=== PATIENT | female | born 1960 | race Caucasian/White ===

== ENCOUNTER 2025-01-11 12:02 | Emergency (ER) | payer OTHER ==
[2025-01-11 13:06] LABS: Urine Microscopic Reflex YN NO UMIC
[2025-01-11 13:37] LABS: Absolute Lymphocytes (CBC) 3.3 K/uL (0.7-4.9); Hematocrit 43.5 % (36.0-45.0); Hemoglobin 15.3 g/dL (12.0-15.0); MCH 29.1 pg (27.0-35.0); MCHC 35.1 g/dL (32.0-36.0); MCV 82.9 fL (80-100); MPV 7.8 fL (7.6-11.3); Nucleated RBC Absolute Count 0.0 (0-0); Nucleated Red Blood Cells % 0.2 % (0-0); RBC Red Blood Cell Count 5.25 M/uL (3.86-4.86); White Blood Count 8.60 thou/uL (4.3-10.9)
[2025-01-11 13:52] LABS: Influenza A Ag Negative; Influenza B Ag Negative; SARS-CoV-2 Antigen Rapid Res Negative (Negative)
[2025-01-11 13:52] LABS: NT PRO-BNP 28 pg/mL (<125)
[2025-01-11 13:54] LABS: Troponin High Sensitivity < 3.0 pg/mL (<58.9)
[2025-01-11 14:16] LABS: ALT/SGPT 39.0 U/L (13-56); AST/SGOT 23.0 U/L (15-37); Albumin 4.3 g/dL (3.4-5.0); Albumin/Globulin Ratio 1.3 (1.1-1.8); Alkaline Phosphatase 62.0 U/L (45-117); Anion Gap 11.9 mEq/L (5.0-15.0); BUN Blood Urea Nitrogen 10.0 mg/dL (7-18); Globulin 3.4 g/dL (2.3-3.5); Glucose Level 95.0 mg/dL (74-106); Lipase 61.0 U/L (13-75); Potassium 3.9 mEq/L (3.5-5.1)
[2025-01-11 14:31] LABS: PT Prothrombin Time 12.1 SECONDS (10-13.0); PTT, Activated Partial Thromb 34.8 SECONDS (27.2-37.4); Protime INR 1.07
--- NOTE | 2025-01-11 14:52 | RAD REPORT ---
EXAMINATION: Abdomen Pelvis W Contrast CLINICAL INDICATION: Female, 64 years old.ABD PAIN TECHNIQUE: CT abdomen and pelvis was performed, after the administration of IV contrast, as per [facility]. Axial, sagittal and coronal reconstructions were obtained. One or more of the following dose reduction techniques were used: Automated exposure control, adjustment of the mA and/o r kV according to patient size, and/or iterative reconstruction. Unless otherwise specified, incidental findings do not require dedicated imaging follow-up. [id number]. COMPARISON: No prior exams FINDINGS: LOWER CHEST: No acute process identified.No significant pericardial effusion. Moderate circumferentia l thickening of the distal esophagus which could reflect esophagitis. Endoscopy could better evaluate. UPPER GI: Status post gastric banding. LIVER: Hepatic steatosis, but otherwise unremarkable. GALLBLADDER/BILE DUCTS: Cholecystectomy. Moderate extrahepatic biliary ductal dilatation. This could be secondary to the post-cholecystectomy state. Recommend correlation with LFT's. If abnormal, consider MRCP for further evaluation. ? PANCREAS: No mass, ductal dilation, or jevon-pancreatic fluid. SPLEEN: Unremarkable. ADRENALS: No adrenal masses. KIDNEYS AND URETERS: No hydronephrosis.Low density and/or too small to characterize renal lesions whi ch are statistically benign.No renal calculi.No ureteral calculi. ABDOMINAL AORTA AND OTHER VESSELS: Normal caliber aorta and IVC. PERITONEUM: No abnormal free fluid. No free air. Small simple appearing cystic structures adjacent to the splenic hilum which are of doubtful clinical significance. LYMPH NODES: No pathologic lymphadenopathy. ABDOMINAL WALL: Unremarkable SMALL BOWEL/COLON: Small bowel has normal course and caliber. No colonic wall thickening or pericolon ic inflammatory changes.No appendicitis. Colorectal anastomosis. URINARY BLADDER: Underdistended but grossly unremarkable. REPRODUCTIVE ORGANS: No pathologic process. MUSCULOSKELETAL: No acute or suspicious osseous abnormality. ADDITIONAL FINDINGS: None. IMPRESSION: No acute findings within the abdomen or pelvis.
--- NOTE | 2025-01-11 15:09 | EDPHYS ---
Physician Documentation [facility] Name: Deanna Lawson Age: 64 yrs Sex: Female : 1960 Arrival Date: 01/11/2025 Time: 12:02 Bed 16 Private MD: ED Physician Raoul Ling HPI: 01/11 15:01 This 64 yrs old Female presents to ER via Ambulatory with complaints of Fever, rn Abdominal Pain. 15:01 Patient reports subjective fever, chills, back pain. Patient states recent diagnosis of rn UTI and completed Macrobid prescription that was based off of urine culture. Patient states does not feel terrible but the back pain has her concern for kidney infection. Has had multiple UTIs in the past. Has had resistant urinary tract infections as well. States Macrobid was given based off of culture so should have worked. Patient also reports congestion. No cough or shortness of breath.. Historical: - Allergies: 12:22 Sulfa (Sulfonamide Antibiotics); ss 12:22 "sensitivity to pain medication"; ss 12:22 "floxins"; ss - PMHx: 12:22 Diabetes mellitus; Hypertensive disorder; epilepsy; ss - PSHx: 12:22 hysterectomy; Breast Reduction; cervical fusion; Cholecystectomy; ss - Immunization history:: Adult Immunizations unknown. - Infectious Disease History:: Denies. - Social history:: Smoking status: Patient denies any tobacco usage or history of. - Family history:: not pertinent. - Hospitalizations: : No recent hospitalization is reported. ROS: 15:01 Constitutional: Positive for fever and chills Cardiovascular: Negative for chest pain, rn palpitations, and edema, Respiratory: Negative for shortness of breath, cough, wheezing, and pleuritic chest pain, Abdomen/GI: soft, non-tender Back: Negative for CVAT Exam: 13:29 ECG was reviewed by the Attending Physician. rn 15:01 Constitutional: This is a well developed, well nourished patient who is awake, alert, rn and in no acute distress. Cardiovascular: Regular rate and rhythm. No pulse deficits. Respiratory: No increased work of breathing, no retractions or nasal flaring. Abdomen/GI: Soft, non-tender Back: No spinal tenderness. No costovertebral tenderness. Vital Signs: 12:19 BP 129 / 82; Pulse 80; Resp 16; Temp 97.9; Pulse Ox 100% on R/A; Weight 73.94 kg; ss Height 5 ft. 9 in. ; Pain 7/10; 13:30 BP 130 / 83; Pulse 74; Resp 20; Pulse Ox 100% on R/A; db 14:00 BP 127 / 88; Pulse 79; Resp 18; Pulse Ox 100% ; db 15:14 BP 140 / 90; Pulse 77; Resp 18; Pulse Ox 100% on R/A; db 12:19 Body Mass Index 24.07 (73.94 kg, 175.26 cm) ss 12:19 Pain Scale: Adult ss MDM: 12:08 Medical Screening Exam initiated rn 15:01 Differential diagnosis: viral Infection, bacterial infection, URI, UTI. Data reviewed: rn vital signs, nurses notes, lab test result(s), radiologic studies, CT scan, and as a result, I will discharge patient. Consideration of Admission/Observation Escalation of care including admission/observation considered. Care significantly affected by the following chronic conditions: Diabetes, Hypertension. Counseling: I had a detailed discussion with the patient and/or guardian regarding the historical points, exam findings, and any diagnostic results supporting the discharge/admit diagnosis, lab results, radiology results, the need for outpatient follow up, to return to the emergency department if symptoms worsen or persist or if there are any questions or concerns that arise at home. Special discussion: I discussed with the patient/guardian in detail that at this point there is no indication for admission to the hospital. It is understood, however, that if the symptoms persist or worsen the patient needs to return immediately for re-evaluation. Based on the history and exam findings, there is no indication for further emergent testing or inpatient evaluation. I discussed with the patient/guardian the need to see the primary care provider for further evaluation of the symptoms. ED course: Labs and imaging unremarkable. Will discharge home with broad-spectrum antibiotic but discussed case with patient and could be viral infection or secondary infection.. 01/11 12:12 Order name: CBC with Diff; Complete Time: 14:49 rn 01/11 12:12 Order name: CMP; Complete Time: 14:49 rn 01/11 12:12 Order name: Lipase; Complete Time: 14:49 rn 01/11 12:12 Order name: UA Rfx Kingsley Cult if indicated; Complete Time: 13:14 rn 01/11 12:25 Order name: BNP; Complete Time: 14:49 rn 01/11 12:25 Order name: Blood Culture Adult (2) rn 01/11 12:25 Order name: Lactate w/ 2H reflex if indic.; Complete Time: 14:49 rn 01/11 12:25 Order name: Protime (+inr); Complete Time: 14:49 rn 01/11 12:25 Order name: Ptt, Activated; Complete Time: 14:49 rn 01/11 12:25 Order name: Troponin HS; Complete Time: 14:49 rn 01/11 12:43 Order name: COVID-19 Ag + Flu A+B Ag; Complete Time: 14:49 rn 01/11 12:43 Order name: Group A Streptococcus Rapid; Complete Time: 14:49 rn 01/11 13:55 Order name: Throat Culture EDCT 01/11 12:12 Order name: CT Abd/Pelvis - IV Contrast Only; Complete Time: 14:56 rn 01/11 12:12 Order name: IV Saline Lock; Complete Time: 14:16 rn 01/11 12:12 Order name: Labs collected and sent; Complete Time: 14:16 rn 01/11 12:25 Order name: Accucheck; Complete Time: 14:15 rn 01/11 12:25 Order name: Cardiac monitoring; Complete Time: 12:59 rn 01/11 12:25 Order name: EKG - Nurse/Tech; Complete Time: 12:59 rn 01/11 12:25 Order name: IV Saline Lock - Large Bore; Complete Time: 14:15 rn 01/11 12:25 Order name: O2 Per Protocol; Complete Time: 14:15 rn 01/11 12:25 Order name: O2 Sat Monitoring; Complete Time: 14:15 rn 01/11 12:25 Order name: Vital Signs; Complete Time: 14:15 rn EC:29 Rate is 67 beats/min. Rhythm is regular. QRS [place] is Normal. DE interval is normal. QRS rn interval is normal. QT interval is normal. No Q waves. T waves are Normal. No ST changes noted. Clinical impression: Normal ECG. Interpreted by me. Reviewed by me. Administered Medications: 15:14 Drug: LevOfloxacin PO 500 mg PO once Route: PO; db 15:25 Follow up: Response: No adverse reaction db Disposition Summary: 01/11/25 15:07 Discharge Ordered Notes: Location: Home rn Problem: new rn Symptoms: have improved rn Condition: Stable rn Diagnosis - Fever, unspecified rn Followup: rn - With: Private Physician - When: As needed - Reason: Recheck today's complaints, Re-evaluation by your physician Discharge Instructions: - Discharge Summary Sheet rn - Fever, Adult rn Forms: - Medication Reconciliation Form rn - Antibiotic harness rigger - Prescription Opioid Use rn - Patient Portal Instructions rn - Leadership Thank You Letter rn Prescriptions: - levofloxacin 500 mg Oral tablet - take 1 tablet ORAL route once daily for 7 days; 7 tablet; Refills: 0, Product rn Selection Permitted Signatures: Dispatcher [employer] EDMS Raoul Ling MD MD rn Blanchard, Shelby, RN RN ss Benton, Danielle RN RN db Corrections: (The following items were deleted from the chart) 12:13 12:13 CBC+H.LAB.BRZ ordered. EDMS EDMS 12: 12:13 COMPREHENSIVE METABOLIC PANEL+C.LAB.BRZ ordered. EDMS EDMS 12: 12:13 LIPASE+C.LAB.BRZ ordered. EDMS EDMS 12: 12:13 UA Rfx Kingsley Cult if indicated+U.LAB.BRZ ordered. EDMS EDMS 12: 12:13 Abdomen Pelvis W Con+CT.RAD.BRZ ordered. EDMS EDMS 12: 12:26 PROBNP+C.LAB.BRZ ordered. EDMS EDMS 12: 12:26 BLOOD CULTURE*+BA.LAB.BRZ ordered. EDMS EDMS 12: 12:26 LACTATE+C.LAB.BRZ ordered. EDMS EDMS 12: 12:26 PROTIME (+INR)+COAG.LAB.BRZ ordered. EDMS EDMS 12: 12:26 PTT, ACTIVATED+COAG.LAB.BRZ ordered. EDMS EDMS 12: 12:26 Troponin High Sensitivity+C.LAB.BRZ ordered. EDMS EDMS 12: 12:43 COVID-19 Ag + Flu A+B Ag+I.LAB.BRZ ordered. EDMS EDMS 12:43 12:43 Group A Streptococcus Rapid Sc+I.LAB.BRZ ordered. EDMS EDMS
--- NOTE | 2025-01-11 15:09 | ER ---
Nurse's Notes [facility] Name: Deanna Lawson Age: 64 yrs Sex: Female : 1960 Arrival Date: 01/11/2025 Time: 12:02 Bed 16 Private MD: Diagnosis: Fever, unspecified Presentation: 01/11 12:19 Chief complaint: Patient states: Diagnosed with UTI 3 weeks ago and completed course of ss Macrobid a week ago and is still having burning with urination, frequency. Abd discomfort with flank pain that began yesterday and fever that began last night TMAX 100.8. Coronavirus screen: Client denies travel out of the [place] in the last 14 days. Ebola Screen: Patient denies exposure to infectious person. Patient denies travel to an Ebola-affected area in the 21 days before illness onset. Initial Sepsis Screen: Does the patient meet any 2 criteria? No. Patient's initial sepsis screen is negative. Does the patient have a suspected source of infection? No. Patient's initial sepsis screen is negative. Risk Assessment: Do you want to hurt yourself or someone else? Patient reports no desire to harm self or others. Onset of symptoms is unknown. 12:19 Method Of Arrival: Ambulatory ss 12:19 Acuity: WILLIAM 3 ss Historical: - Allergies: 12:22 Sulfa (Sulfonamide Antibiotics); ss 12:22 "sensitivity to pain medication"; ss 12:22 "floxins"; ss - PMHx: 12:22 Diabetes mellitus; Hypertensive disorder; epilepsy; ss - PSHx: 12:22 hysterectomy; Breast Reduction; cervical fusion; Cholecystectomy; ss - Immunization history:: Adult Immunizations unknown. - Infectious Disease History:: Denies. - Social history:: Smoking status: Patient denies any tobacco usage or history of. - Family history:: not pertinent. - Hospitalizations: : No recent hospitalization is reported. Screenin:01 [facility] ED Fall Risk Assessment (Adult) History of falling in the last 3 months, db including since admission No falls in past 3 months (0 pts) Confusion or Disorientation No (0 pts) Intoxicated or Sedated No (0 pts) Impaired Gait No (0 pts) Mobility Assist Device Used No (0 pt) Altered Elimination No (0 pt) Score/Fall Risk Level 0 - 2 = Low Risk Oriented to surroundings, Maintained a safe environment. Abuse screen: Denies threats or abuse. Denies injuries from another. Nutritional screening: No deficits noted. Tuberculosis screening: No symptoms or risk factors identified. Assessment: 13:17 Reassessment: Patient appears in no apparent distress at this time. Patient and/or db family updated on plan of care and expected duration. Pain level reassessed. Patient is alert, oriented x 3, equal unlabored respirations, skin warm/dry/pink. General: Appears in no apparent distress. comfortable, Behavior is calm, cooperative. Pain: Complains of pain in abdomen. Neuro: Level of Consciousness is awake, alert, obeys commands, Oriented to person, place, time, situation. GI: Abdomen is non-distended, Bowel sounds present X 4 quads. Abd is soft. 15:25 Reassessment: Patient appears in no apparent distress at this time. Patient and/or db family updated on plan of care and expected duration. Pain level reassessed. Patient is alert, oriented x 3, equal unlabored respirations, skin warm/dry/pink. Vital Signs: 12:19 BP 129 / 82; Pulse 80; Resp 16; Temp 97.9; Pulse Ox 100% on R/A; Weight 73.94 kg; ss Height 5 ft. 9 in. ; Pain 7/10; 13:30 BP 130 / 83; Pulse 74; Resp 20; Pulse Ox 100% on R/A; db 14:00 BP 127 / 88; Pulse 79; Resp 18; Pulse Ox 100% ; db 15:14 BP 140 / 90; Pulse 77; Resp 18; Pulse Ox 100% on R/A; db 12:19 Body Mass Index 24.07 (73.94 kg, 175.26 cm) ss 12:19 Pain Scale: Adult ss ED Course: 12:05 Patient arrived in ED. ts1 12:08 Raoul Ling MD is Attending Physician. rn 12:22 Triage completed. ss 12:22 Arm band placed on right wrist. ss 13:00 First set of blood cultures drawn. db 13:04 Linh Galindo, RN is Primary Nurse. db 13:05 Urine collected: clean catch specimen, EKG done. db 13:17 Initial lab(s) drawn, by me, sent to lab. Second set of blood cultures drawn. Inserted db saline lock: 20 gauge in left antecubital area, using aseptic technique. Blood collected. Flushed with 10 mL NS. 14:01 Patient has correct armband on for positive identification. Bed in low position. Call db light in reach. Side rails up X 1. Client placed on continuous cardiac and pulse oximetry monitoring. NIBP monitoring applied. quality assurance monitor body on. Pulse ox on. NIBP on. Warm blanket given. Pillow given. 14:38 CT Abd/Pelvis - IV Contrast Only In Process Unspecified. EDMS 15:22 Provided Education on: DISCHARGE AND FOLLOWUP. db 15:22 No provider procedures requiring assistance completed. IV discontinued, intact, db bleeding controlled, No redness/swelling at site. Administered Medications: 15:14 Drug: LevOfloxacin PO 500 mg PO once Route: PO; db 15:25 Follow up: Response: No adverse reaction db Medication: 14:01 VIS not applicable for this client. db Outcome: 15:07 Discharge ordered by . rn 15:22 Discharged to home ambulatory, with family, db 15:22 Condition: stable 15:22 Discharge instructions given to patient, Instructed on discharge instructions, follow up and referral plans. Prescriptions given X 1, 15:25 Patient left the ED. db Signatures: Dispatcher [employer] EDMS Raoul Ling MD MD rn Blanchard, Shelby, RN RN ss Benton, Danielle, RN RN Nkechi Prather PAS PAS ts1
[2025-01-11] MEDS ORDERED: levETIRAcetam 500 MG TAB ONE (15:10)
[2025-01-11 19:28] VITALS: O2SAT 100
[2025-01-11 19:30] VITALS: TEMP 97.9
[2025-01-11 19:33] VITALS: BP 140/90
== END 2025-01-11 15:25 | disposition home or self-care (01) ==
LOC: ER 12:02
DX: R50.9 Fever, unspecified (principal); M54.9 Dorsalgia, unspecified; Z11.52 Encounter for screening for COVID-19
CPT/HCPCS: 93005; 87040 ×2; 87070; 85025; 36415; 85610; 83605; 85730; 81003; 84484; 83690; 80053; 83880; 74177; 99284; 87428; Q9967

== ENCOUNTER 2025-01-17 16:51 | Emergency (ER) | payer OTHER ==
[2025-01-17] MEDS ORDERED: NA CHLORIDE 0.9% 1,000 ML ONE (17:26)
--- NOTE | 2025-01-17 17:56 | RAD REPORT ---
EXAMINATION: Ankle Left 3 View CLINICAL INDICATION: Female, 64 years old. injury lateral malleolus and inferior;Pain COMPARISON: No prior exam. FINDINGS: No acute fracture. No malalignment/dislocation. Plantar and dorsal aspect calcaneal spurs. Other: n/a IMPRESSION: No acute osseous abnormality.
--- NOTE | 2025-01-17 18:15 | ER ---
Nurse's Notes [facility] Name: Deanna Lawson Age: 64 yrs Sex: Female : 1960 Arrival Date: 01/17/2025 Time: 16:51 Bed 7 Private MD: Diagnosis: Sprain of unspecified ligament of left ankle, initial encounter Presentation: 01/17 17:12 Chief complaint: Patient states: was started on Levaquin lasts week for a UTI, now she iw is having pain in left ankle, she stepped down on it yesterday and felt like something ripped, she is also having pain in her neck and shoulders. Coronavirus screen: At this time, the client does not indicate any symptoms associated with coronavirus-19. Ebola Screen: No symptoms or risks identified at this time. Initial Sepsis Screen: Does the patient meet any 2 criteria? No. Patient's initial sepsis screen is negative. Does the patient have a suspected source of infection? No. Patient's initial sepsis screen is negative. Risk Assessment: Do you want to hurt yourself or someone else? Patient reports no desire to harm self or others. Onset of symptoms was January 07, 2025. 17:12 Method Of Arrival: Ambulatory iw 17:12 Acuity: WILLIAM 3 iw Historical: - Allergies: 17:13 Sulfa (Sulfonamide Antibiotics); iw - PMHx: 17:13 diabetes mellitus; epilepsy; Hypertensive disorder; iw - Immunization history:: Adult Immunizations unknown. - Infectious Disease History:: Denies. - Family history:: not pertinent. - Hospitalizations: : No recent hospitalization is reported. - Social history:: Smoking status: Patient denies any tobacco usage or history of. Screenin:36 [facility] ED Fall Risk Assessment (Adult) History of falling in the last 3 months, ph including since admission No falls in past 3 months (0 pts) Confusion or Disorientation No (0 pts) Intoxicated or Sedated No (0 pts) Impaired Gait No (0 pts) Mobility Assist Device Used No (0 pt) Altered Elimination No (0 pt) Score/Fall Risk Level 0 - 2 = Low Risk Oriented to surroundings, Maintained a safe environment, Hourly rounding (assess needs \\T\\ fall precautionary measures) done. Abuse screen: Denies threats or abuse. Denies injuries from another. Nutritional screening: No deficits noted. Tuberculosis screening: No symptoms or risk factors identified. Assessment: 17:34 General: Appears in no apparent distress. comfortable, well groomed, Behavior is calm, ph cooperative, appropriate for age. Pain: Complains of pain in neck, L ankle, and "all over". Neuro: Level of Consciousness is awake, alert, obeys commands, Oriented to person, place, time, situation. Cardiovascular: Capillary refill < 3 seconds in bilateral fingers Patient's skin is warm and dry. Respiratory: Airway is patent Respiratory effort is even, unlabored. Derm: Skin is pink, warm \\T\\ dry. 18:26 Reassessment: D/C pending completion of IV fluids. ph Vital Signs: 17:12 BP 132 / 94; Pulse 80; Resp 16; Temp 98.1(O); Pulse Ox 100% on R/A; Pain 7/10; iw 17:37 BP 134 / 80; Pulse 73; Resp 18; Pulse Ox 98% on R/A; ph 18:59 BP 128 / 78; Pulse 71; Resp 18; Temp 97.6; Pulse Ox 98% on R/A; ph 17:12 Pain Scale: Adult iw ED Course: 16:55 Patient arrived in ED. cj3 16:57 Raoul Ling MD is Attending Physician. rn 17:13 Triage completed. iw 17:17 Arm band placed on. iw 17:22 Elaina Marie, RN is Primary Nurse. ph 17:36 Inserted saline lock: 22 gauge in right antecubital area, using aseptic technique. ph Flushed with 10 mL NS. 17:37 Patient has correct armband on for positive identification. Bed in low position. Call ph light in reach. Side rails up X 1. Pulse ox on. NIBP on. Door closed. Noise minimized. Warm blanket given. 17:49 XRAY Ankle LEFT 3 view In Process Unspecified. EDMS 18:29 No provider procedures requiring assistance completed. ph 19:00 IV discontinued, intact, bleeding controlled, No redness/swelling at site. Pressure ph dressing applied. Administered Medications: 17:34 Drug: NS 0.9% IV 1000 ml IV at 1000 ml once; to be given as a bolus over 60 minutes ph Route: IV; Rate: 1000 ml; Site: right antecubital; 19:00 Follow up: Response: No adverse reaction; IV Status: Completed infusion; IV Intake: ph 1000ml Medication: 17:36 VIS not applicable for this client. ph Intake: 19:00 IV: 1000ml; Total: 1000ml. ph Outcome: 18:14 Discharge ordered by . rn 19:00 Discharged to home ambulatory, ph 19:00 Condition: good 19:00 Discharge instructions given to patient, Instructed on discharge instructions, follow up and referral plans. Demonstrated understanding of instructions, follow-up care, 19:00 Patient left the ED. ph Signatures: Dispatcher [employer] Kyara Tubbs RN RN iw Raoul Ling MD MD rn Hall, Patricia, RN RN Giselle Llanos 3 Corrections: (The following items were deleted from the chart) 17:17 17:12 BP 132 / 94; Pulse 80bpm; Resp 16bpm; Pulse Ox 100% RA; iw iw
--- NOTE | 2025-01-17 18:15 | EDPHYS ---
Physician Documentation [facility] Name: Deanna Lawson Age: 64 yrs Sex: Female : 1960 Arrival Date: 01/17/2025 Time: 16:51 Bed 7 Private MD: ED Physician Raoul Ling HPI: 01/17 17:18 This 64 yrs old Female presents to ER via Ambulatory with complaints of Joint Pain, rn Doesn't Feel Right. 17:18 Patient reports here mainly for left ankle injury, had a misstep and reports pain to rn the left lateral ankle and just inferior to the ankle. Able to ambulate and was swollen yesterday with improvement of swelling today. Does not feel like it is broken but came for evaluation as she is going out of town and back to work and is worried about all of the walking and strain on it. Also reports seen here last week, prescribed Levaquin and similar to previous reaction to it she started to feel joint aches. No fever or chills. Overall feels symptoms improved taking Levaquin and only has 1 pill remaining. States felt like this the last time she took Levaquin as well. No new symptoms or worsening symptoms.. Historical: - Allergies: 17:13 Sulfa (Sulfonamide Antibiotics); iw - PMHx: 17:13 diabetes mellitus; epilepsy; Hypertensive disorder; iw - Immunization history:: Adult Immunizations unknown. - Infectious Disease History:: Denies. - Family history:: not pertinent. - Hospitalizations: : No recent hospitalization is reported. - Social history:: Smoking status: Patient denies any tobacco usage or history of. ROS: 17:18 Constitutional: Negative for fever, chills, and weight loss, Neck: Negative for injury, rn pain, and swelling, Cardiovascular: Negative for chest pain, palpitations, and edema, Respiratory: Negative for shortness of breath, cough, wheezing, and pleuritic chest pain, Abdomen/GI: Negative for abdominal pain, nausea, vomiting, diarrhea, and constipation, MS/Extremity: Positive for left ankle injury and pain Skin: Negative for injury, rash, and discoloration, Neuro: Negative for headache, weakness, numbness, tingling, and seizure, Exam: 17:18 Constitutional: This is a well developed, well nourished patient who is awake, alert, rn and in no acute distress. Cardiovascular: Regular rate and rhythm. No pulse deficits. Respiratory: Speaking full sentences, unlabored. MS/ Extremity: Pulses equal, no cyanosis. Neurovascular intact. Full, normal range of motion. Equal circumference. Mild tenderness just inferior to the left lateral malleolus without swelling or ecchymosis noted. No open wounds. Neuro: Awake and alert, GCS 15, normal gait Vital Signs: 17:12 BP 132 / 94; Pulse 80; Resp 16; Temp 98.1(O); Pulse Ox 100% on R/A; Pain 7/10; iw 17:37 BP 134 / 80; Pulse 73; Resp 18; Pulse Ox 98% on R/A; ph 18:59 BP 128 / 78; Pulse 71; Resp 18; Temp 97.6; Pulse Ox 98% on R/A; ph 17:12 Pain Scale: Adult iw MDM: 16:57 Medical Screening Exam initiated rn 18:06 Independent interpretation of the following test(s) in the Emergency Department X-Ray: rn My interpretation is X-ray images left ankle negative for acute fracture or dislocation per my interpretation. 18:13 Differential diagnosis: fracture, sprain, arthritis. Data reviewed: vital signs, nurses rn notes, radiologic studies, plain films, and as a result, I will discharge patient. Counseling: I had a detailed discussion with the patient and/or guardian regarding the historical points, exam findings, and any diagnostic results supporting the discharge/admit diagnosis, radiology results, the need for outpatient follow up, to return to the emergency department if symptoms worsen or persist or if there are any questions or concerns that arise at home. Response to treatment: the patient's symptoms have mildly improved after treatment, and as a result, I will discharge patient. Special discussion: I discussed with the patient/guardian in detail that at this point there is no indication for admission to the hospital. It is understood, however, that if the symptoms persist or worsen the patient needs to return immediately for re-evaluation. ED course: Will hold Levaquin as patient feels like she is having an adverse reaction to the Levaquin. Only had 1 more day and overall improved symptoms. X-ray left ankle did not reveal fracture. Most likely strain or sprain. Will discharge home with return precautions and work note.. 01/17 17:18 Order name: XRAY Ankle LEFT 3 view; Complete Time: 18:05 rn 01/17 17:18 Order name: IV Start; Complete Time: 17:34 rn Administered Medications: 17:34 Drug: NS 0.9% IV 1000 ml IV at 1000 ml once; to be given as a bolus over 60 minutes ph Route: IV; Rate: 1000 ml; Site: right antecubital; 19:00 Follow up: Response: No adverse reaction; IV Status: Completed infusion; IV Intake: ph 1000ml Disposition Summary: 01/17/25 18:14 Discharge Ordered Notes: Location: Home rn Problem: new rn Symptoms: have improved rn Condition: Stable rn Diagnosis - Sprain of unspecified ligament of left ankle, initial encounter rn Followup: rn - With: Private Physician - When: As needed - Reason: Recheck today's complaints, Re-evaluation by your physician Discharge Instructions: - Discharge Summary Sheet rn - Ankle Sprain rn Forms: - Medication Reconciliation Form rn - Antibiotic litigation attorney associate - Prescription Opioid Use rn - Patient Portal Instructions rn - Leadership Thank You Letter rn - Work release form ph Signatures: Dispatcher [employer] Kyara Tubbs, RN Raoul Brandt MD MD rn Hall, Patricia, RN RN ph
[2025-01-17 19:50] VITALS: O2SAT 98
[2025-01-17 19:52] VITALS: BP 128/78; TEMP 97.6
== END 2025-01-17 19:00 | disposition home or self-care (01) ==
LOC: ER 16:51
DX: S93.402A Sprain of unspecified ligament of left ankle, initial encounter (principal)
CPT/HCPCS: 73610; 96360; 99284; J7030